=== PATIENT | female | born 1960 | race Two or more races ===

== ENCOUNTER 2022-08-24 15:58 | Inpatient (IN) | payer OTHER ==
[~2022-08-24] VITALS: Ht 149.9 cm; Wt 49.9 kg
--- NOTE | 2022-08-24 16:39 | NUR ---
PTE ALERTA Y ORIENTADA X3 ESFERAS EN AMBULANCIA EN COMPANIA DE FAMILIAR,QUIEN REFIERE NO PODER EVACUAR Y CON ANURIA DESDE HACE 5 BOWMAN.SE OBSERVA ABDOMEN DISTENDIDO,PTE CON DISTROFIA MUSCULAR.DEPENDIENTE DE OXIGENO.
--- NOTE | 2022-08-24 19:51 | NUR ---
PTE FEMENINA EVALUADA POR SE ORIENTA A PTE Y FAMILIAR SOBRE ORDENES DE TX REFIERE COMPENDER. SE COLECTAN MUESTRAS DE LABORATORIOS, BAJO MEDIDAS ASEPTICAS. SE NOTIFICA XRAY A PERSONAL DE RADIOLOGIA.
--- NOTE | 2022-08-24 20:28 | NUR ---
SE CATETERIZA PTE BAJO MEDIDAS ASEPTICAS PARA GRACIA DE MUESTRAS DE UA PENDIENTE.
== END 2022-08-27 10:57 | disposition expired | DRG 389 ==
LOC: ER 15:58 → MEDI 23:36
PROVIDERS: ADMIT Internal Medicine; ATTEND Internal Medicine
PROC: BW21ZZZ Computerized Tomography (CT Scan) of Abdomen and Pelvis (ICD-10-PCS; principal; 2022-08-24)
PROC: 02HV33Z Insertion of Infusion Device into Superior Vena Cava, Percutaneous Approach (ICD-10-PCS; 2022-08-26)
DX: K56.699 Other intestinal obstruction unspecified as to partial versus complete obstruction (principal); E87.1 Hypo-osmolality and hyponatremia; E87.6 Hypokalemia; E83.42 Hypomagnesemia; G35 Multiple sclerosis; G71.09 Other specified muscular dystrophies; Z74.01 Bed confinement status; E86.0 Dehydration; E87.8 Other disorders of electrolyte and fluid balance, not elsewhere classified; Z20.822 Contact with and (suspected) exposure to COVID-19